=== PATIENT | male | born 2000 | race Caucasian/White ===

== ENCOUNTER 2022-01-09 09:31 | Emergency (ER) | payer OTHER, SELFPAY ==
[2022-01-09 09:50] VITALS: BP 126/60; PULSE 61; RESP 16; TEMP 36.2; O2SAT 100
--- NOTE | 2022-01-09 10:14 | ED.EAR ---
HPI - Ear Problem General Chief complaint: Ear Stated complaint: right ear pain Time Seen by Provider: 01/09/22 10:15 History of Present Illness HPI Narrative: Johnnie Gilman is a 22-year-old male with no PMH who comes to [facility] with a worsening right ear states that the pain was bad enough last night that kept him up most the night. He states that he went swimming over the weekend but does not feel like he had water in his ear but yesterday started to feel some throbbing in his ear and today states that ear is very painful Related Data Allergies Allergy/AdvReac Type Severity Reaction Status Date / Time No Known Allergies Allergy Verified 01/09/22 10:09 Review of Systems Review of Systems: CONSTITUTIONAL: Denies fever, chills, sweats. EYES: Denies visual changes, redness, discharge. ENT: Denies rhinorrhea, congestion, sore throat, right otalgia. CARDIOVASCULAR: Denies chest pain, palpitations, edema. RESPIRATORY: Denies dyspnea, wheezing, cough GASTROINTESTINAL: Denies abdominal pain, nausea, vomiting, diarrhea. GENITOURINARY: Denies dysuria, hematuria, abnormal discharge SKIN: Denies rash or itching. NEUROLOGIC: Denies numbness, or focal weakness. PSYCHIATRIC: Denies anxiety or depression. [facility] Past Medical History Medical History (Updated 01/09/22 @ 10:27 by Kacey Sharma CNP) No acute medical problems Social History Social History (Updated 01/09/22 @ 10:23 by Kacey Sharma CNP) Smoking packs per day: 0.5 Smoking cigarettes per day: 10.0 Smoking status: Current every day smoker Alcohol intake: never Comments At time of signature, I agree with nursing past medical, surgical, social and family history. There is no relevant family history pertinent to the presenting complaint. Exam Narrative: GENERAL: This is a well-nourished, well-developed patient, in moderate distress. HEAD: normocephalic, atraumatic. EYES: . Sclera clear/white. Vision is grossly intact. EARS: External ears normal, auditory canals clear on left but on right is swollen and draining, TM not visualized. Hearing grossly intact. NOSE: External nose normal without nasal discharge, nares without redness, no rhinorrhea. THROAT: Mucous membranes moist, posterior pharynx erythema NECK: Neck supple, non-tender CARDIOVASCULAR: Regular rate and rhythm without murmurs, gallops, or rubs. RESPIRATORY: Clear to auscultation. Breath sounds equal bilaterally. No wheezes, rales, or rhonchi. GASTROINTESTINAL: Not done SKIN: warm, intact with no suspicious lesions or rash, good texture and turgor. NEURO: awake, alert, and oriented to person, place and time. There were no obvious focal neurologic abnormalities. Steady gait EXTREMITIES: Normal range of motion. BACK: Nontender without deformity Course Course Emergency Course: Patient here with right ear pain for 2 days, worsening this morning Started on amoxicillin and to start on Zyrtec Level of Care: Express Care Visit Vital Signs Vital signs: Vital Signs Temperature 97.2 F L 01/09/22 09:50 Pulse Rate 61 01/09/22 09:50 Respiratory Rate 16 01/09/22 09:50 Blood Pressure 126/60 01/09/22 09:50 Pulse Oximetry 100 01/09/22 09:50 Oxygen Delivery Room Air 01/09/22 09:50 Temperature 97.2 F L 01/09/22 09:50 Pulse Rate 61 01/09/22 09:50 Respiratory Rate 16 01/09/22 09:50 Blood Pressure 126/60 01/09/22 09:50 Pulse Oximetry 100 01/09/22 09:50 Oxygen Delivery Room Air 01/09/22 09:50 Medical Decision Making Differential Diagnosis Differential Diagnosis: Otitis media versus otitis externa versus eustachian tube dysfunction Vital Signs Vital Signs: Vital Signs Temperature 97.2 F L 01/09/22 09:50 Pulse Rate 61 01/09/22 09:50 Respiratory Rate 16 01/09/22 09:50 Blood Pressure 126/60 01/09/22 09:50 Pulse Oximetry 100 01/09/22 09:50 Oxygen Delivery Room Air 01/09/22 09:50 Temperature 97.2 F L 01/09/22 09:50 Pulse Ra
== END 2022-01-09 10:31 | disposition home or self-care (01) ==
PROVIDERS: Emergency Provider Nurse Practitioner
DX: H66.001 Acute suppurative otitis media without spontaneous rupture of ear drum, right ear (principal); F17.210 Nicotine dependence, cigarettes, uncomplicated
CPT/HCPCS: 99203; G0463